=== PATIENT | female | born 2000 | race Caucasian/White ===

== ENCOUNTER → 2024-04-07 14:23 | Outpatient (CLI) | payer OTHER, SELFPAY ==
--- NOTE | 2024-04-07 14:25 | DI.US.S_ITS ---
PROCEDURE: US PELVIC COMPLETE INDICATIONS: PELVIC PAIN TECHNIQUE: Real-time scanning was performed of the pelvic organs, with image documentation. Additional endovaginal scanning was necessary due to incomplete visualization of the adnexal and endometrial structures by transabdominal scanning. COMPARISON: None. FINDINGS: Uterus: Uterus is anteverted and normal in size at 7.3 x 2.8 x 4.5 cm. The myometrium is homogeneous. The endometrium measures 2.5 mm combined thickness. Intrauterine device is noted within endometrium and is low in position extending into and in cervical canal. Ovaries: The right ovary measures 3.7 x 2.2 x 2.1 cm, with a calculated ovarian volume of 8.9 cc. The left ovary measures 3.3 x 2.5 x 2.2 cm, with a calculated ovarian volume of 9.5 cc. The ovaries have a normal sonographic appearance. Less than 12 follicles can be seen in each ovary. Dominant follicle is seen in left ovary measures 1.5 cm in size. No adnexal masses are seen. Other: No pathologic free abdominal or pelvic fluid. IMPRESSION: 1. Intrauterine device is low in position and appears extending to endocervical canal. No endometrial mass or fluid. 2. Normal appearing bilateral ovaries. We strive to produce accurate, complete, and clear reports of imaging services. To assist us in improving patient care, this report was composed using standard report templates and voice recognition software. Therefore, it may contain abnormal punctuation, insertions and/or omissions. Occasional wrong-word or sound-alike substitutions may occur. Though we review the report and make efforts to correct it, we do recommend that the report be read carefully in proper context to recognize any text inaccuracies. Dictated by: Faisal Neri M.D. on 04/07/2024 at 16:37 Approved by: Faisal Neri M.D. on 04/07/2024 at 16:41
== END ==
PROVIDERS: PCP Nurse Practitioner Family; Referring Provider Nurse Practitioner Family; Visit Provider Nurse Practitioner Family
DX: R10.2 Pelvic and perineal pain (principal); Z97.5 Presence of (intrauterine) contraceptive device
CPT/HCPCS: 76830; 76856

== ENCOUNTER 2024-07-12 20:23 | Emergency (ER) | payer OTHER, SELFPAY ==
[2024-07-12 20:32] VITALS: BP 128/67; PULSE 86; RESP 18; O2SAT 97
[2024-07-12 20:35] VITALS: BP 128/67; PULSE 89; RESP 18; TEMP 37.1; O2SAT 97; BMI 30.7
--- NOTE | 2024-07-12 21:27 | DI.CT.S_ITS ---
PROCEDURE: CT ABDOMEN PELVIS W CON INDICATIONS: LOWER QUADRANT ABD PAIN, GROSSLY BLOODY STOOL TECHNIQUE: After the administration of intravenous contrast, axial sections acquired from the lung bases to the pubic symphysis. Coronal and sagittal reformats were performed. For radiation dose reduction, the following was used: automated exposure control, adjustment of mA and/or kV according to patient size. COMPARISON: None. FINDINGS: Image quality: Diagnostic. Lower Chest: No significant findings. ABDOMEN: Liver: No solid mass. Liver measures 19.9 cm with steatosis. Gallbladder: No radiopaque gallstones or wall thickening. Biliary ducts: No biliary dilation. Pancreas: No ductal dilation. Spleen: Size is within normal limits. Adrenal Glands: No adrenal nodules. Kidneys and Ureters: No hydronephrosis. No solid mass. No complex renal cystic lesion which requires follow up. Stomach and Bowel: Normal colonic caliber, without significant wall thickening. No inflammatory change. Hiatal hernia. Appendix is normal. Peritoneum: No abnormal intraperitoneal fluid. No free air. Ventral Wall: No significant ventral hernia. Abdominal Nodes: No retroperitoneal or mesenteric adenopathy by size criteria. Vessels: Aorta and inferior vena cava are normal in size. PELVIS: Pelvic Organs: IUD is present. Bladder: No bladder wall thickening, accounting for underdistention. Pelvic Nodes: No enlarged lymph nodes. Miscellaneous: No inguinal hernias are seen. Bones: No aggressive osseous abnormality. IMPRESSION: No acute intra-abdominal or pelvic process. Dictated by: Britni Mann M.D. on 07/12/2024 at 21:59 Approved by: Britni Mann M.D. on 07/12/2024 at 22:07
--- NOTE | 2024-07-12 21:37 | ED.GIBLEED ---
HPI - GI Bleed General Chief complaint: GI Bleed Stated complaint: Blood in Stool/Rectal Bleed, Blood Clots Time Seen by Provider: 07/12/24 20:30 Source: patient Mode of arrival: Ambulatory History of Present Illness HPI Narrative: 23-year-old female with a reported history of migraines, IBS presents by private vehicle from home for 1 day of bright red blood and blood clots in her stool. Has also had lower abdominal cramping and diarrhea. Has never had blood in her rectum before. States that she saw a GI doctor 6 years ago when she was initially diagnosed with IBS and had an upper endoscopy performed, but has never had a colonoscopy performed. Denies use of blood thinners. Patient History Social History Smoking Status: Never smoker Smoking Status: Never smoker Exam Initial Vital Signs Initial Vital Signs: Vital Signs Pulse Rate 86 07/12/24 20:32 Respiratory Rate 18 07/12/24 20:32 Blood Pressure 128/67 07/12/24 20:32 Pulse Oximetry 97 07/12/24 20:32 Const: Awake, alert, no acute distress, nontoxic appearing Cardiac: regular rate, regular rhythm RESP: unlabored, clear bilaterally, no wheezing GI: Soft, minimal bilateral lower quadrant tenderness to deep palpation Rectum: [employer] present, small nonthrombosed external hemorrhoid, no gross blood Skin: Warm, Dry, intact, no rashes Neuro: AO x3, CN II-XII grossly intact, moves all extremities Course Orders Ordered: ED Orders 07/12/24 21:27 CT abdomen pelvis w con Stat 07/12/24 21:37 CBC Auto Diff [Complete Blood Count AUTO DIFF] Stat CMP [Comprehensive Metabolic Panel] Stat Vital Signs Vital signs: Vital Signs - 8 hr 07/12/24 20:32 07/12/24 20:32 07/12/24 20:35 Temperature 98.7 F Pulse Rate 86 89 Respiratory Rate 18 18 Blood Pressure 128/67 128/67 Pulse Oximetry 97 97 Oxygen Delivery Method Room Air 07/12/24 22:27 07/12/24 22:28 07/12/24 22:28 Temperature Pulse Rate 79 85 Respiratory Rate Blood Pressure 111/55 L Pulse Oximetry 98 98 Oxygen Delivery Method 07/12/24 22:30 Temperature Pulse Rate 85 Respiratory Rate Blood Pressure Pulse Oximetry 97 Oxygen Delivery Method MDM - GI Bleed Differential Diagnosis Differential diagnosis: Likely hemorrhoids, Lower gastrointestinal hemorrhage and hematochezia Lab Data 07/12/24 21:37 07/12/24 21:37 Labs: Lab Results 07/12/24 Range/Units 21:37 WBC 8.8 (4.5-11.0) X10^3/uL RBC 4.56 (4.0-5.2) X10^6/uL Hgb 14.1 (12.0-16.0) g/dL Hct 41.8 (36-46) % MCV 91.8 (80-100) fL MCH 30.9 (26-34) PG MCHC 33.6 (30-36) % RDW 12.7 (11.6-14.8) % Plt Count 274 (150-400) X10^3/uL Neut % (Auto) 45.0 L (50-75) % Lymph % (Auto) 44.9 H (25-40) % [place] % (Auto) 7.1 (3-14) % Eos % (Auto) 2.1 (2-4) % Baso % (Auto) 0.9 (0-2) % Neut # (Auto) 4000 (8274-4045) /uL Lymph # (Auto) 4000 (6103-9458) /uL [place] # (Auto) 600 (0-900) /uL Eos # (Auto) 200 (0-450) /uL Baso # (Auto) 100 (0-100) /uL Sodium 136 L (137-145) mmol/L Potassium 3.6 (3.4-5.1) mmol/L Chloride 104 (98-107) mmol/L Carbon Dioxide 26 (22-32) mmol/L BUN 14 (7-17) mg/dL Creatinine 0.63 (0.52-1.04) mg/dL Estimated GFR > 60 (>60) mL/min BUN/Creatinine Ratio 22.2 H (6-22) Glucose 101 H (70-100) mg/dL Calcium 9.6 (8.4-10.2) mg/dL Total Bilirubin 0.4 (0.2-1.3) mg/dL AST 56 H (14-36) IU/L ALT 122 H (<35) IU/L Alkaline Phosphatase 43 (38-126) U/L Total Protein 7.7 (6.3-8.2) g/dL Albumin 4.9 (3.5-5.0) g/dL Globulin 2.8 (1.7-4.1) g/dL Albumin/Globulin Ratio 1.8 (1.0-2.8) Point of Care Testing Test Results Negative Imaging Data CT scan - abdomen/pelvis: Radiologist's Impression: PROCEDURE: CT ABDOMEN PELVIS W CON INDICATIONS: LOWER QUADRANT ABD PAIN, GROSSLY BLOODY STOOL TECHNIQUE: After the administration of intravenous contrast, axial sections acquired from the lung bases to the pubic symphysis. Coronal and sagittal reformats were performed. For radiation dose reduction, the following was used: automated exposure control, adjustment of mA and/or kV according to patient size. COMPARISON: None. FINDINGS: Image quality: Diagnostic. Lower Chest: No significant findings. ABDOMEN: Liver: No solid mass. Liver measures 19.9 cm with steatosis. Gallbladder: No radiopaque gallstones or wall thickening. Biliary ducts: No biliary dilation. Pancreas: No ductal dilation. Spleen: Size is within normal limits. Adrenal Glands: No adrenal nodules. Kidneys and Ureters: No hydronephrosis. No solid mass. No complex renal cystic lesion which requires follow up. Stomach and Bowel: Normal colonic caliber, without significant wall thickening. No inflammatory change. Hiatal hernia. Appendix is normal. Peritoneum: No abnormal intraperitoneal fluid. No free air. Ventral Wall: No significant ventral hernia. Abdominal Nodes: No retroperitoneal or mesenteric adenopathy by size criteria. Vessels: Aorta and inferior vena cava are normal in size. PELVIS: Pelvic Organs: IUD is present. Bladder: No bladder wall thickening, accounting for underdistention. Pelvic Nodes: No enlarged lymph nodes. Miscellaneous: No inguinal hernias are seen. Bones: No aggressive osseous abnormality. IMPRESSION: No acute intra-abdominal or pelvic process. Dictated by: Britni Mann M.D. on 07/12/2024 at 21:59 Approved by: Britni Mann M.D. on 07/12/2024 at 22:[address] [facility] Narrative Medical decision making narrative: Well-appearing patient with reports of gross blood in stool at home today. On exam there was no gross blood, no blood in the rectal vault. Laboratory work shows normal hemoglobin. CT shows no acute findings. Patient advised of lab and imaging findings. Recommended follow up with GI to discuss possibilities or necessity of colonoscopy. ED return precautions discussed. Discharge Plan Departure Patient Disposition: Home Clinical Impression: Blood in stool Instructions: Gastrointestinal Bleeding Activity Restrictions/Additional Instructions: Your laboratory work today shows a normal hemoglobin, and your CT scan did not show any signs of infection or inflammation. I do recommend following up with your GI doctor to discuss possibilities of a colonoscopy. You may notice that you have continued bleeding. If you notice shortness of breath, chest pain with exertion, lightheadedness then I recommend coming back for repeat hemoglobin check. Otherwise you may follow up with your primary care doctor as needed. Referrals: Juliet Maciel ARNP [Primary Care Provider] - Stand Alone Forms: Patient Portal/API/Survey
[2024-07-12 21:46] LABS: Add Manual Diff / Slide Review NO; Basophils Absolute Auto 100 /uL (0-100); Basophils Percent Auto 0.9 % (0-2); Eosinophils Absolute Auto 200 /uL (0-450); Eosinophils Percent Auto 2.1 % (2-4); Hematocrit 41.8 % (36-46); Hemoglobin 14.1 g/dL (12.0-16.0); Lymphocytes Absolute Auto 4000 /uL (1100-4500); Lymphocytes Percent Auto 44.9 % (25-40); Mean Corpuscular HGB Conc 33.6 % (30-36); Mean Corpuscular Hemoglobin 30.9 PG (26-34); Mean Corpuscular Volume 91.8 fL (80-100); Monocytes Absolute Auto 600 /uL (0-900); Monocytes Percent Auto 7.1 % (3-14); Neutrophils Absolute Auto 4000 /uL (1500-7000); Platelet Count 274 X10^3/uL (150-400); Red Blood Cell Count 4.56 X10^6/uL (4.0-5.2); Red Cell Distribution Width 12.7 % (11.6-14.8); White Blood Cell Count 8.8 X10^3/uL (4.5-11.0)
[2024-07-12 21:55] LABS: Alanine Aminotransferase 122 IU/L (<35); Albumin 4.9 g/dL (3.5-5.0); Albumin Globulin Ratio 1.8 (1.0-2.8); Alkaline Phosphatase 43 U/L (38-126); Aspartate Aminotransferase 56 IU/L (14-36); BUN Creatinine Ratio 22.2 (6-22); Bilirubin Total 0.4 mg/dL (0.2-1.3); Blood Urea Nitrogen 14 mg/dL (7-17); Calcium 9.6 mg/dL (8.4-10.2); Carbon Dioxide 26 mmol/L (22-32); Chloride 104 mmol/L (98-107); Estimated Glomerular Filt Rate > 60 mL/min (>60); Globulin 2.8 g/dL (1.7-4.1); Glucose 101 mg/dL (70-100); HEMOLYSIS 24 (0-50); Potassium 3.6 mmol/L (3.4-5.1); Sodium 136 mmol/L (137-145); Total Protein 7.7 g/dL (6.3-8.2)
[2024-07-12 22:27] VITALS: PULSE 79; O2SAT 98
[2024-07-12 22:28] VITALS: BP 111/55; PULSE 85; O2SAT 98
[2024-07-12 22:30] VITALS: PULSE 85; O2SAT 97
== END 2024-07-12 22:30 | disposition home or self-care (01) ==
PROVIDERS: Emergency Provider Emergency Medicine; PCP Nurse Practitioner Family
DX: K62.5 Hemorrhage of anus and rectum (principal); R10.30 Lower abdominal pain, unspecified
CPT/HCPCS: 36415; 74177; 80053; 81025; 85025; 99284; Q9967

== ENCOUNTER → 2024-08-09 07:22 | Outpatient (CLI) | payer OTHER, SELFPAY ==
--- NOTE | 2024-08-09 07:23 | DI.US.S_ITS ---
PROCEDURE: US ABDOMEN LIMITED INDICATIONS: ELEVATED LIVER ENZYMES TECHNIQUE: Real-time scanning was performed of the abdominal and retroperitoneal organs, with image documentation. COMPARISON: None. FINDINGS: Liver: Increased liver echogenicity with posterior attenuation, most consistent with moderate to severe steatosis. Gallbladder: No gallstones. No wall thickening. No pericholecystic edema. Negative sonographic Lei's sign. Biliary ducts: Intrahepatic bile ducts are non-dilated. Extrahepatic bile duct caliber measures 4 mm. Normal is 6-7 mm or less in diameter, or 10 mm or less post-cholecystectomy. Pancreas: Visualized portions of the pancreas are sonographically normal. Miscellaneous: No free abdominal fluid. IMPRESSION: Hepatic steatosis. In the absence of alcohol use or other confounding factors, elevated LFTs may indicate [id number] steatohepatitis (MASH). Dictated by: Hugo Muller M.D. on 08/09/2024 at 10:28 Approved by: Hugo Muller M.D. on 08/09/2024 at 10:29
== END ==
PROVIDERS: PCP Nurse Practitioner Family; Referring Provider Nurse Practitioner Family; Visit Provider Nurse Practitioner Family
DX: K62.5 Hemorrhage of anus and rectum (principal); K76.0 Fatty (change of) liver, not elsewhere classified
CPT/HCPCS: 76705

== ENCOUNTER 2024-11-30 08:22 | Emergency (ER) | payer OTHER, SELFPAY ==
[2024-11-30] VITALS (9 sets, daily range): BP systolic 101–122; BP diastolic 59–73; PULSE 74–87; RESP 14–23; TEMP 36.6; O2SAT 96–98; BMI 31.0
[2024-11-30 09:16] LABS: Add Manual Diff / Slide Review NO; Basophils Absolute Auto 0 /uL (0-100); Basophils Percent Auto 0.5 % (0-2); Eosinophils Absolute Auto 0 /uL (0-450); Eosinophils Percent Auto 0.5 % (2-4); Hematocrit 41.7 % (36-46); Hemoglobin 14.4 g/dL (12.0-16.0); Lymphocytes Absolute Auto 1400 /uL (1100-4500); Lymphocytes Percent Auto 15.1 % (25-40); Mean Corpuscular HGB Conc 34.5 % (30-36); Mean Corpuscular Hemoglobin 31.6 PG (26-34); Mean Corpuscular Volume 91.4 fL (80-100); Monocytes Absolute Auto 400 /uL (0-900); Neutrophils Absolute Auto 7600 /uL (1500-7000); Neutrophils Percent Auto 79.9 % (50-75); Platelet Count 255 X10^3/uL (150-400); Red Blood Cell Count 4.56 X10^6/uL (4.0-5.2); Red Cell Distribution Width 13.1 % (11.6-14.8); White Blood Cell Count 9.5 X10^3/uL (4.5-11.0)
[2024-11-30 09:27] LABS: Alanine Aminotransferase 113 IU/L (<35); Albumin 4.7 g/dL (3.5-5.0); Albumin Globulin Ratio 1.6 (1.0-2.8); Alkaline Phosphatase 46 U/L (38-126); Aspartate Aminotransferase 46 IU/L (14-36); Bilirubin Total 0.7 mg/dL (0.2-1.3); Blood Urea Nitrogen 11 mg/dL (7-17); Calcium 9.4 mg/dL (8.4-10.2); Carbon Dioxide 22 mmol/L (22-32); Chloride 106 mmol/L (98-107); Estimated Glomerular Filt Rate > 60 mL/min (>60); Globulin 2.9 g/dL (1.7-4.1); Glucose 123 mg/dL (70-99); HEMOLYSIS < 15 (0-50); Lipase 75 U/L (23-300); Sodium 138 mmol/L (137-145); Total Protein 7.6 g/dL (6.3-8.2)
--- NOTE | 2024-11-30 09:41 | ED.ABDPAIN ---
HPI - Abdominal Pain General Chief Complaint: Abdominal Pain Stated Complaint: N/V Stabbing pain in lower stomach x 1 day Time Seen by Provider: 11/30/24 08:56 Source: patient, RN notes reviewed and old records reviewed Mode of arrival: Ambulatory Limitations: no limitations History of Present Illness HPI narrative: 24-year-old female history of nonalcoholic hepatic steatosis, PCOS, migraines, anxiety who presents with complaint of left lower quadrant pain that started last night. Patient states has been localized left lower quadrant does radiate a little bit towards the middle. She notes occasionally we will have a sharp flare of discomfort she was has a little bit into the flank. She was states currently it is only left lower quadrant she describes it as mild. No fevers. She was had some nausea and vomiting with it. She denies any chest pain or shortness of breath. States had constipated stool that was hard followed by a lot of liquidy stool last night. No black or bloody stools. Denies any dysuria, urgency frequency or hematuria. She notes she does not get regular menses. States she has not IUD in place. No new discharge or vaginal bleeding noted. Patient but she recently increased her dose of Wegovy in the last week, she was on metformin, spironolactone, Prozac, hydroxyzine and ulbrelvy. Patient states no prior intra-abdominal surgeries. Denies other surgeries. No known drug allergies. No tobacco, occasional alcohol, no recreational drugs. Related Data Home Medications ?Medication ?Instructions ?Recorded ?Confirmed amitriptyline 25 mg tablet 25 mg PO ONCE PM 10/13/24 10/13/24 cholecalciferol (vitamin D3) 25 PO 10/13/24 10/13/24 mcg (1,000 unit) tablet clobetasol 0.05 % scalp solution topical 10/13/24 10/13/24 dextroamphetamine-amphetamine 5 mg 1 tab PO DAILY 10/13/24 10/13/24 tablet dextroamphetamine-amphetamine ER 1 cap PO QAM 10/13/24 10/13/24 10 mg 24hr capsule,extend release fluoxetine 10 mg capsule 10 mg PO DAILY 10/13/24 10/13/24 fluoxetine 20 mg capsule 20 mg PO DAILY 10/13/24 10/13/24 hydrocortisone 1 %-pramoxine 1 % SD 10/13/24 10/13/24 rectal foam (Proctofoam HC) hydroxyzine HCl 25 mg tablet 25 mg PO 3XD 10/13/24 10/13/24 ibuprofen 600 mg tablet 600 mg PO 3XD 10/13/24 10/13/24 lidocaine 5 % topical patch 1 patch topical DAILY 10/13/24 10/13/24 naproxen 500 mg tablet 500 mg PO BID 10/13/24 10/13/24 ondansetron HCl 4 mg tablet 4 mg PO Q8H PRN 10/13/24 10/13/24 polyethylene glycol 3350 17 17 g PO DAILY 10/13/24 10/13/24 gram/dose oral powder triamcinolone acetonide 0.1 % 1 applic topical 10/13/24 10/13/24 topical cream valacyclovir 500 mg tablet 500 mg PO DAILY 10/13/24 10/13/24 Previous Rx's ?Medication ?Instructions ?Recorded metformin 1,000 mg tablet 1,000 mg PO BIDWMEAL #60 tabs 10/23/24 spironolactone 100 mg tablet 100 mg PO BID #60 tabs 10/23/24 Allergies Allergy/AdvReac Type Severity Reaction Status Date / Time cinnamon Allergy Severe Anaphylaxis Verified 11/30/24 08:47 ALUMINUM CHLORIDE AdvReac RASH Uncoded 11/30/24 08:47 Review of Systems Review of Systems ROS Unobtainable: All systems reviewed & are unremarkable except as noted in HPI and below Patient History Social History Smoking Status: Never smoker Smoking Status: Never smoker Exam Narrative Exam Narrative: GENERAL: Alert and oriented x three, female in distress HEENT: Head normocephalic, atraumatic, EOMI, pupils reactive, face symmetric, moist mucous membranes NECK: Supple, full range of motion CARDIOVASCULAR: Regular rate and rhythm without murmurs, rubs or gallops. RESPIRATORY: Breath sounds equal bilaterally, no wheezes rales or rhonchi. ABDOMEN: Soft, very mild left lower quadrant tenderness. Normoactive bowel sounds all 4 quadrants. No guarding or rebound, rigidity, no mass : No CVA tenderness bilaterally EXTREMITIES: Normal range of motion, no clubbing or edema. Neurovascularly intact NEUROLOGICAL: Cranial nerves II through XII grossly intact. Moving all extremities SKIN: Warm, dry, no petechiae, no rashes or lesions. Initial Vital Signs Initial Vital Signs: Vital Signs Pulse Rate 87 11/30/24 08:40 Respiratory Rate 16 11/30/24 08:40 Blood Pressure 122/68 11/30/24 08:40 Pulse Oximetry 97 11/30/24 08:40 Course Orders Ordered: Discontinued Medications Ketorolac Tromethamine (Ketorolac 30 Mg/Ml Vial) 15 mg IV NOW ONE Stop: 11/30/24 09:56 Last Admin: 11/30/24 11:07 Dose: 15 mg Documented By: MARAH Ondansetron HCl (Ondansetron 4 Mg/2 Ml Inj) 4 mg IV NOW PRN PRN Reason: Nausea And Vomiting Ondansetron HCl (Ondansetron 4 Mg Odt) 4 mg PO NOW PRN PRN Reason: Nausea And Vomiting Ondansetron HCl (Ondansetron 4 Mg/2 Ml Inj) 4 mg IV NOW ONE Stop: 11/30/24 09:56 Last Admin: 11/30/24 11:08 Dose: 4 mg Documented By: RB Vital Signs Vital signs: Vital Signs - 8 hr 11/30/24 08:40 11/30/24 08:40 11/30/24 08:48 Temperature 98 F Pulse Rate 87 85 Respiratory Rate 16 14 Blood Pressure 122/68 117/73 Pulse Oximetry 97 97 Oxygen Delivery Method Room Air 11/30/24 09:00 11/30/24 09:00 11/30/24 09:29 Temperature Pulse Rate 80 Respiratory Rate 19 Blood Pressure 111/66 108/60 Pulse Oximetry 97 Oxygen Delivery Method 11/30/24 09:29 11/30/24 09:30 11/30/24 09:30 Temperature Pulse Rate 81 74 Respiratory Rate 19 19 Blood Pressure 112/68 Pulse Oximetry 97 97 Oxygen Delivery Method MDM - Abdominal Pain Lab Data 11/30/24 09:09 11/30/24 09:09 Labs: Lab Results 11/30/24 11/30/24 Range/Units 09:09 09:30 WBC 9.5 (4.5-11.0) X10^3/uL RBC 4.56 (4.0-5.2) X10^6/uL Hgb 14.4 (12.0-16.0) g/dL Hct 41.7 (36-46) % MCV 91.4 (80-100) fL MCH 31.6 (26-34) PG MCHC 34.5 (30-36) % RDW 13.1 (11.6-14.8) % Plt Count 255 (150-400) X10^3/uL Neut % (Auto) 79.9 H (50-75) % Lymph % (Auto) 15.1 L (25-40) % [place] % (Auto) 4.0 (3-14) % Eos % (Auto) 0.5 L (2-4) % Baso % (Auto) 0.5 (0-2) % Neut # (Auto) 7600 H (1569-4514) /uL Lymph # (Auto) 1400 (5421-0608) /uL [place] # (Auto) 400 (0-900) /uL Eos # (Auto) 0 (0-450) /uL Baso # (Auto) 0 (0-100) /uL Sodium 138 (137-145) mmol/L Potassium 4.0 (3.4-5.1) mmol/L Chloride 106 (98-107) mmol/L Carbon Dioxide 22 (22-32) mmol/L BUN 11 (7-17) mg/dL Creatinine 0.58 (0.52-1.04) mg/dL Estimated GFR > 60 (>60) mL/min BUN/Creatinine Ratio 19.0 (6-22) Glucose 123 H (70-99) mg/dL Calcium 9.4 (8.4-10.2) mg/dL Total Bilirubin 0.7 (0.2-1.3) mg/dL AST 46 H (14-36) IU/L ALT 113 H (<35) IU/L Alkaline Phosphatase 46 (38-126) U/L Total Protein 7.6 (6.3-8.2) g/dL Albumin 4.7 (3.5-5.0) g/dL Globulin 2.9 (1.7-4.1) g/dL Albumin/Globulin Ratio 1.6 (1.0-2.8) Lipase 75 (23-300) U/L Urine RBC 0-1/hpf (0-5/HPF) Urine WBC 0-1/hpf (0-5/HPF) Ur Squamous Epith Cells 1-5 /hpf (0-5/HPF) Urine Bacteria Few (2-10) H (None) Ur Culture Indicated? Cult not indicated Vol Urine Centrifuged 10ml (spun) Point of care testing: Point of Care Testing Test Results Negative Urine Dip Bedside Urine Glucose Negative Bedside Urine Bilirubin - Negative Bedside Urine Ketone - Negative Urine Specific [place] 1.015 Bedside Urine Occult Blood +/- Bedside Urine pH 6.0 Bedside Urine Protein - Negative Bedside Urine Urobilinogen - Negative Bedside Urine Nitrite - Negative Bedside Urine Leukocytes - Negative Esterase MDM Narrative Medical decision making narrative: White count of 9 hemoglobin of 14 platelets of 255, electrolytes are appropriate BUN and creatinine normal glucose is 123, bilirubin is 0.7 AST is 46 ALT is 113 lipase is 75. Point of care is negative. Point of care urine is negative except for blood, urine microscopy. Pelvic ultrasound, normal blood flow seen to bilateral ovaries intrauterine device appears appropriate position. Greater than 12 sub 5 mm follicle cyst bilaterally HGB associated polycystic. Morphology recommend clinical correlation. No pathologic free fluid or pelvic fluid. Patient received Zofran and Toradol 24-year-old female with complaint of left lower quadrant pain does sometimes go little bit to her flank. Describes it as mostly in the left lower quadrant reproducible on exam. Reviewed findings with the patient discussed differential including kidney stone, diverticulitis, ovarian cyst versus other potential source. Patient's serum labs show no major changes. Point of care urine just her some blood no other signs of infection. Discussed imaging choices we will start with a pelvic ultrasound to evaluate for any ovarian cyst as she was high-risk but if negative discussed we can evaluate with CT imaging if needed. Patient feels much improved after medications reviewed pelvic ultrasound shows changes consistent with polycystic ovaries but no other changes. Discussed further CT imaging but patient defers she was feeling improved feels comfortable to return home with watchful waiting and return in 24 hours for re-evaluation if not improving or sooner if worsening. Discharge Plan Departure Patient Disposition: Home Clinical Impression: Abdominal pain Instructions: DI for Abdominal Pain-Adult Activity Restrictions/Additional Instructions: Please follow up as needed. Your imaging did show polycystic ovaries but no large ovarian cyst, your labs did not show any major changes. You can take acetaminophen up to a 1000 mg every 6 hours and/or ibuprofen up to 600 mg every 6 hours as needed for pain. Please return if you develop fevers, worsening abdominal back or flank pain, persistent vomiting, new black or bloody stools, difficulty or inability to urinate or other new or concerning changes. Prescriptions: No Action metformin 1,000 mg tablet 1,000 mg PO BIDWMEAL Qty: 60 12RF spironolactone 100 mg tablet 100 mg PO BID Qty: 60 12RF lidocaine 5 % adhesive patch,medicated 1 patch topical DAILY naproxen 500 mg tablet 500 mg PO BID dextroamphetamine-amphetamine 10 mg capsule,extended release 24hr 1 cap PO QAM Proctofoam HC 1-1 % foam SD dextroamphetamine-amphetamine 5 mg tablet 1 tab PO DAILY polyethylene glycol 3350 17 gram/dose powder 17 g PO DAILY ondansetron HCl 4 mg tablet 4 mg PO Q8H PRN valacyclovir 500 mg tablet 500 mg PO DAILY amitriptyline 25 mg tablet 25 mg PO ONCE PM fluoxetine 20 mg capsule 20 mg PO DAILY fluoxetine 10 mg capsule 10 mg PO DAILY hydroxyzine HCl 25 mg tablet 25 mg PO 3XD ibuprofen 600 mg tablet 600 mg PO 3XD clobetasol 0.05 % solution topical Patient Comments: [NO ORIGINAL SIG] triamcinolone acetonide 0.1 % cream 1 applic topical cholecalciferol (vitamin D3) 25 mcg (1,000 unit) tablet PO Referrals: Juliet Maciel ARNP [Primary Care Provider, Nursing] Stand Alone Forms: Patient Portal/API, Work Release Note
--- NOTE | 2024-11-30 09:55 | DI.US.S_ITS ---
PROCEDURE: US PELVIC COMPLETE INDICATIONS: LLQ pain TECHNIQUE: Real-time scanning was performed of the pelvic organs, with image documentation. Additional endovaginal scanning was necessary due to incomplete visualization of the adnexal and endometrial structures by transabdominal scanning. COMPARISON: [facility], US, US PELVIC COMPLETE, 04/07/2024, 14:36. FINDINGS: Uterus: Uterus is anteverted and normal in size at 7.2 x 3.0 x 4.7 cm. The myometrium is homogeneous. The endometrium measures 2 mm combined thickness. Intrauterine device appears in appropriate position. Ovaries: The right ovary measures 3.9 x 2.5 x 2.3 cm, with a calculated ovarian volume of 11.7 cc. The left ovary measures 3.6 x 2.6 x 2.1 cm, with a calculated ovarian volume of 10.3 cc. The ovaries have a normal Doppler flow. Greater than 12 follicles can be seen in each ovary. No adnexal masses are seen. Other: No pathologic free abdominal or pelvic fluid. IMPRESSION: Normal blood flow seen to the bilateral ovaries. Intrauterine device appears in appropriate position. Greater than 12 sub-5 mm follicular cysts bilaterally which can be associated with polycystic ovarian morphology, recommend clinical correlation. We strive to produce accurate, complete, and clear reports of imaging services. To assist us in improving patient care, this report was composed using standard report templates and voice recognition software. Therefore, it may contain abnormal punctuation, insertions and/or omissions. Occasional wrong-word or sound-alike substitutions may occur. Though we review the report and make efforts to correct it, we do recommend that the report be read carefully in proper context to recognize any text inaccuracies. Dictated by: Ravinder Rogers M.D. on 11/30/2024 at 11:11 Approved by: Ravinder Rogers M.D. on 11/30/2024 at 11:13
[2024-11-30 10:08] LABS: Bacteria Urine Few (2-10); Culture Indicated Urine Cult Not Indicated; RBC Urine 0-1/HPF (0-5/HPF); Squamous Epithelial Cell Urine 1-5 /HPF (0-5/HPF); Urine Volume 10mL (spun); WBC Urine 0-1/HPF (0-5/HPF)
[2024-11-30] MEDS: KETOROLAC 30 MG/ML VIAL 15 MG IV (11:07)
[2024-11-30] MEDS: ONDANSETRON 4 MG/2 ML INJ IV (11:08)
== END 2024-11-30 11:49 | disposition home or self-care (01) ==
PROVIDERS: Emergency Provider Emergency Medicine; PCP Nurse Practitioner Family
DX: R10.32 Left lower quadrant pain (principal)
CPT/HCPCS: 36415; 76856; 80053; 81003; 81015; 81025; 83690; 85025; 96374; 96375; 99284; J1885; J2405

== ENCOUNTER 2025-05-08 12:08 | Emergency (ER) | payer OTHER, SELFPAY ==
[2025-05-08 12:13] VITALS: BP 125/76; PULSE 73; RESP 16; TEMP 36.5; O2SAT 100; BMI 28.5
[2025-05-08 14:10] VITALS: BP 117/70; PULSE 81; RESP 18; O2SAT 99
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
== END 2025-05-08 14:12 | disposition home or self-care (01) ==
PROVIDERS: Emergency Provider Student in an Organized Health Care Education/Training Program; PCP Nurse Practitioner Family
DX: S09.90XA Unspecified injury of head, initial encounter (principal); W22.8XXA Striking against or struck by other objects, initial encounter
CPT/HCPCS: 99281